=== PATIENT | female | born 1955 | race Caucasian/White ===

== ENCOUNTER → 2017-02-07 | Outpatient (CLI) | payer OTHER | LOC: BRMIMAGING 11:01 | PROVIDERS: ATTEND Physician Assistant Medical | DX: M89.8X8 Other specified disorders of bone, other site (principal) | CPT/HCPCS: 73110-PO ==

== ENCOUNTER → 2018-06-01 | Outpatient (CLI) | payer OTHER | END | disposition home or self-care (01) | LOC: BRMIMAGING 10:47 | PROVIDERS: ATTEND Hospitalist | DX: M54.42 Lumbago with sciatica, left side (principal); M43.17 Spondylolisthesis, lumbosacral region; M51.36 Other intervertebral disc degeneration, lumbar region | CPT/HCPCS: 72100-PO ==